=== PATIENT | female | born 1990 | race Caucasian/White ===

== ENCOUNTER 2018-11-17 18:47 | Emergency (ER) | payer OTHER ==
[~2018-11-17] VITALS: Ht 174 cm; Wt 62.1 kg
[~2018-11-17 18:47] MED LIST: OMEP20CA16 PO; RANI150T35 PO
[2018-11-17 18:55] VITALS: BP 132/80; PULSE 93; RESP 19; Ht 174 cm; Wt 62.1 kg
[2018-11-17] MEDS ORDERED: RANITIDINE 150 MG TAB PO ONE (20:00)
[2018-11-17] MEDS ORDERED: LIDOCAINE/MYLANTA 40 ML BTL PO ONE (20:00)
--- NOTE | 2018-11-18 01:45 | ERD ---
ER Documentation Chief Complaint Chief Complaint ABD PAIN WITH N/V; REFFERED BY FOR H.PYLORI; NO BLOODY STOOLS HPI 28-year-old female presenting to the emergency department complaining of midepigastric pain intermittently for the past several weeks. Patient is also had nausea. She took Zofran without significant relief. She does eat spicy food. She reports a decreased appetite. She is been taking omeprazole twice daily and this is her fifth day in a row taking it. She denies any diarrhea, fevers, lower abdominal pain, or other symptoms at this time. ROS All systems reviewed and are negative except as per history of present illness. Medications Home Meds Active Scripts Omeprazole* (Omeprazole*) 20 Mg Capsule.dr, 20 MG PO BID, #20 Prov:ADDISON FRIEDMAN PA-C 11/17/18 Ranitidine Hcl* (Zantac*) 150 Mg Tablet, 150 MG PO BID PRN for EPIGASTRIC PAIN, #30 TAB Prov:ADDISON FRIEDMAN PA-C 11/17/18 Allergies Allergies: Coded Allergies: No Known Allergy (Unverified , 11/17/18) PMhx/Soc History of Surgery: Yes (tonsillectomy) Anesthesia Reaction: No Hx Neurological Disorder: No Hx Respiratory Disorders: No Hx Cardiac Disorders: No Hx Psychiatric Problems: No Hx Miscellaneous Medical Probl: Yes (psoriasis, psoriatic arthritis) Hx Alcohol Use: No Hx Substance Use: Yes (marijuana) Hx Tobacco Use: No Smoking Status: Never smoker FmHx Family History: No diabetes Physical Exam Vitals Vital Signs Date Temp Pulse Resp B/P (MAP) Pulse Ox O2 O2 Flow FiO2 Time Delivery Rate 11/17/18 98.7 93 19 132/80 97 18:55 (97) Physical Exam Const: No acute distress Head: Atraumatic Eyes: Normal Conjunctiva ENT: Normal External Ears, Nose and Mouth. Neck: Full range of motion. No meningismus. Resp: Clear to auscultation bilaterally Cardio: Regular rate and rhythm, no murmurs Abd: Soft, non tender, non distended. Normal bowel sounds. No rebound tenderness or guarding. No McBurney's point tenderness. Skin: No petechiae or rashes Back: No midline or flank tenderness Ext: No cyanosis, or edema Neur: Awake and alert Psych: Normal Mood and Affect Result Diagram: 11/17/18195411/17/181954 Results 24 hrs Laboratory Tests Test 11/17/18 19:55 11/17/18 19:58 White Blood Count 9.1 10^3/ul Red Blood Count 4.12 10^6/ul Hemoglobin 12.4 g/dl Hematocrit 38.0 % Mean Corpuscular Volume 92.2 fl Mean Corpuscular Hemoglobin 30.1 pg Mean Corpuscular Hemoglobin Concent 32.6 g/dl Red Cell Distribution Width 11.9 % Platelet Count 323 10^3/UL Mean Platelet Volume 8.7 fl Immature Granulocytes % 0.300 % Neutrophils % 66.6 % Lymphocytes % 26.2 % Monocytes % 5.4 % Eosinophils % 0.8 % Basophils % 0.7 % Nucleated Red Blood Cells % 0.0 /100WBC Immature Granulocytes # 0.030 10^3/ul Neutrophils # 6.1 10^3/ul Lymphocytes # 2.4 10^3/ul Monocytes # 0.5 10^3/ul Eosinophils # 0.1 10^3/ul Basophils # 0.1 10^3/ul Nucleated Red Blood Cells # 0.0 10^3/ul Urine Color STRAW Urine Clarity CLEAR Urine pH 6.0 Urine Specific [place] 1.005 Urine Ketones NEGATIVE mg/dL Urine Nitrite NEGATIVE mg/dL Urine Bilirubin NEGATIVE mg/dL Urine Urobilinogen NEGATIVE mg/dL Urine Leukocyte Esterase NEGATIVE Christ/ul Urine Hemoglobin NEGATIVE mg/dL Urine Glucose NEGATIVE mg/dL Urine Total Protein NEGATIVE mg/dl Sodium Level 138 mmol/L Potassium Level 4.3 mmol/L Chloride Level 104 mmol/L Carbon Dioxide Level 28 mmol/L Anion Gap 6 Blood Urea Nitrogen 12 mg/dl Creatinine 0.81 mg/dl Est Glomerular Filtrat Rate mL/min > 60 mL/min Glucose Level 96 mg/dl Calcium Level 9.6 mg/dl Total Bilirubin 0.5 mg/dl Direct Bilirubin 0.00 mg/dl Indirect Bilirubin 0.5 mg/dl Aspartate Amino Transf (AST/SGOT) 21 IU/L Alanine Aminotransferase (ALT/SGPT) 15 IU/L Alkaline Phosphatase 41 IU/L Total Protein 8.4 g/dl Albumin 4.5 g/dl Globulin 3.90 g/dl Albumin/Globulin Ratio 1.15 Lipase 121 U/L POC Beta HCG, Qualitative NEGATIVE Current Medications Medications Dose Sig/Rosaline Start Time Status Last (Trade) Ordered Route PRN Stop Time Admin Dose Reason Admin 40 ml ONCE ONCE 11/17/18 DC 11/17/18 Miscellaneous PO 20:00 20:02 Medication 11/17/18 20:01 (Gi Cocktail (2)) Ranitidine 150 mg ONCE ONCE 11/17/18 DC 11/17/18 HCl PO 20:00 20:02 (Zantac) 11/17/18 20:01 Procedures/MDM 28-year-old female presents to the emergency department complaining of midepigastric pain and nausea. Patient was administered GI cocktail and ranitidine in the department with improvement of symptoms. CBC showed no evidence of leukocytosis or anemia. Chemistry panel showed normal liver and renal function. No electrolyte abnormalities. No evidence of metabolic acidosis or alkalosis. Urinalysis showed no evidence of urinary tract infec tion. Urine was negative. Patient symptoms are likely secondary to GERD or other nonemergent cause. Low suspicion for acute surgical abdomen, cholecystitis, esophageal rupture, appendicitis, or other emergent process. Patient will be discharged home in stable condition with prescription for omeprazole and ranitidine. She was given strict return precautions prior to discharge. She understands and I shared my medical decision making with the patient and she understands and agrees with the plan. Abdominal Ct Risks and Benefits: CT Scan of the abdomen was discussed with all present and we agree at this time that a trial of watchful waiting is most appropriate. As the patient shows no evidence at this time of acute abdomen. Departure Diagnosis: Primary Impression: Epigastric pain Condition: Fair Patient Instructions: Gerd (Adult) Referrals: [facility] YOU HAVE RECEIVED A MEDICAL SCREENING EXAM AND THE RESULTS INDICATE THAT YOU DO NOT HAVE A CONDITION THAT REQUIRES URGENT TREATMENT IN THE EMERGENCY DEPARTMENT. FURTHER EVALUATION AND TREATMENT OF YOUR CONDITION CAN WAIT UNTIL YOU ARE SEEN IN YOUR DOCTORS OFFICE WITHIN THE NEXT 1-2 DAYS. IT IS YOUR RESPONSIBILITY TO MAKE AN APPOINTMENT FOR FOLOW-UP CARE. IF YOU HAVE A PRIMARY DOCTOR --you should call your primary doctor and schedule an appointment IF YOU DO NOT HAVE A PRIMARY DOCTOR YOU CAN CALL OUR PHYSICIAN REFERRAL HOTLINE AT IF YOU CAN NOT AFFORD TO SEE A PHYSICIAN YOU CAN CHOSE FROM THE FOLLOWING [facility] [address] [facility] [facility] [address] [facility] [facility] [facility] [address] [facility]. [facility] [address] [facility]. [facility] [address] Additional Instructions: Call your primary care doctor TOMORROW for an appointment during the next 1-2 days.See the doctor sooner or return here if your condition worsens before your appointment time. ADDISON FRIEDMAN PA-C Nov 18, 2018 01:45
== END 2018-11-17 20:45 | disposition home or self-care (01) ==
LOC: FTE 18:47
DX: R10.13 Epigastric pain (principal)
CPT/HCPCS: 80053; 81003; 81025; 83690; 85025; 99283